=== PATIENT | female | born 1950 | race Caucasian/White ===

== ENCOUNTER 2023-08-26 08:31 | Outpatient (RCR) | payer MEDICARE, SELFPAY ==
--- NOTE | 2023-08-26 10:39 | OT.OPOE ---
OT Outpatient Ortho Eval OT Outpatient Ortho Eval* Start: 08/26/23 08:54 Freq: Status: Active Protocol: Document 08/26/23 09:07 NINA (Rec: 08/26/23 10:36 ASHLEYAlec [id number]) E-signed By Layla Anderson, OTR/L, CLT OT OP Ortho Eval Details Complexity Complexity Low Insurance Information Insurance Information [facility],Medicare B Outpatient History/Precautions Current Condition/Medical Diagnosis Referring Provider Dr. 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 Treatment Diagnosis Pain in R shoulder, M25.511 R shoulder stiffness, M25.611 Date of Onset Chronic Medical Conditions Arthritis Other Conditions Active Problems: Arthritis of right acromioclavicular joint (Acute ) M19.011 - Primary osteoarthritis, right shoulder (ICD-10) Osteoarthritis of right shoulder (Acute) M19.011 - Primary osteoarthritis, right shoulder (ICD-10) Arthritis of left acromioclavicular joint (Acute ) M19.012 - Primary osteoarthritis, left shoulder (ICD-10) Osteoarthritis of left shoulder (Acute) M19.012 - Primary osteoarthritis, left shoulder (ICD-10) Surgical History History of hysterectomy (~2006 ) Z90.710 - Acquired absence of both cervix and uterus (ICD-10 ) Hx of cholecystectomy (~2003) Z90.49 - Acquired absence of other specified parts of digestive tract (ICD-10) History of bilateral knee arthroplasty (12/15/17) Z96.653 - Presence of artificial knee joint, bilateral (ICD-10) Home Medications: atorvastatin 80 mg PO DAILY bisoprolol fumarate 5 mg PO DAILY ezetimibe 10 mg PO DAILY fluticasone propionate 50 mcg/ actuation 2 sprays intranasal DAILY hydrochlorothiazide 50 mg PO DAILY lisinopril 5 mg PO DAILY nitroglycerin mg sublingual paroxetine HCl 20 mg PO DAILY Medical/Functional History Medical History Reviewed Yes Prior Level of Function/Mobility Patient ambulates w/o a device . She is Indep with all Self cares and IADLs Social History Employment Status Retired Current Occupation Lives with spouse Ryland Covarrubias Subjective Subjective Subjective Patient is scheduled for a right upper extremity reverse shoulder arthroplasty (this is on her dominant UE) with Dr. Ar Moncada on 09/08/23. Pain Assessment Pain Pain Yes Pain Comments -08/25 at the R shoulder Goniometric Comments Goniometric Comments Goniometric Comments Right shoulder exam shows her range of motion is 45/45/back of the head with great difficulty. Hand Pinch/Server Assistant Strength Hand Pinch/Server Assistant Strength Hand Pinch/Server Assistant Strength Left Hand,Right Hand Left Hand Server Assistant Strength Position 1 in Elbow 55 Flexion (lbs) Server Assistant Strength Position 2 in Elbow 50 Extension (lbs) Right Hand Server Assistant Strength Position 1 in Elbow 45 Flexion (lbs) Server Assistant Strength Position 2 in Elbow 45 Extension (lbs) OT Objective Data Additional Information Objective Additional Information X-ray: Three views of the right shoulder were obtained today. These show end-stage glenohumeral joint osteoarthritis with bone-on- bone joint space narrowing and osteophytic spurring. No proximal migration humeral head, no retroversion of the glenoid. OT Problems Problems Problems Decreased Strength,Decreased Range of Motion,Pain,Lifting, Gripping,Pinching Problems Comments Closing doors, Opening the Car Door Other Problems Writing,Opening Containers, Dressing,Fasteners Patient Potential Excellent Assessment Assessment Assessment Patient is a pleasant 72yr old (retired), right-hand- dominant female scheduled for a right upper extremity reverse shoulder arthroplasty with Dr. Ar Moncada on . Patient presents with pain in both shoulders, right greater than left. She reports many years of global pain on the right, anterior pain on the left. Symptoms are worse with activity, minimally improved with rest. She has done physical therapy recently which has been helpful. She had a cortisone injection on the right, 2-3 years ago which was not helpful. She has never had surgery on either shoulder. She is a borderline diabetic, does not smoke cigarettes currently (former smoker >15 years ago) and is not on blood thinners. She has a supportive spouse (Ryland) who was present for OT EVAL today. EVAL ONLY with patient having outpatient PT after surgery ( beginning on 09.22.23) at the [place] [facility]. Occupational Therapy Treatment Plan - OP Potential Rehabilitation Potential Excellent Barriers Barriers to goal attainment Borderline Diabetic Former smoker, quit >15 years ago Set Goals Goals Set with Patient Yes Goals Goals 1. Patient will be able to properly basia/doff her shoulder sling Independently. 2. Patient will demonstrate how to accurately perform her post-op HEP with use of handout (Modified Indep). Target Date 1 session Treatment Plan Treatment Plan Evaluation,Therapeutic Exercise,Education Expected Frequency EVAL ONLY Expected Duration 2-4 Weeks Home Program Home Program Home Program Initiated Home Program Specifics EDUCATION: If you?ve had a total shoulder replacement, there are some positions your surgeon may recommend you avoid during your recovery to protect your shoulder as it heals. It is important to follow these precautions and any other instructions your health care team gives you to allow your shoulder to heal properly. 1. Make sure to wear your sling as directed by your healthcare provider. Generally , it?s a good idea to keep your sling on at all times, except during self-care or when performing your home exercises. ? Always wear your sling while walking, standing, sleeping, or when you?re outside or in crowds. Wearing your sling around others alerts those around you to be cautious around your operated arm. It also helps avoid someone accidentally bumping or striking your arm. ? If you?re sitting or lying down at home, you may be allowed to take off your sling . Just be careful to keep your elbow tucked in to your side whenever you?re out of your sling. 2. Do not lift or carry anything with your operated arm that weighs more than one pound. This is about the weight of a coffee cup. Eating , drinking, and using a remote control are okay. 3. Do not bear weight through your operated arm, such as when pushing up from a chair. ? If you use a walker, it?s best to use a cane or hemiwalker while your shoulder recovers. These devices can be used with your non- operative arm. 4. At first, you may find it more comfortable to sleep in a recliner. However, you may also sleep in a bed with a folded towel or sheet propped up behind your shoulder and upper arm for support. 5. Do not let your forearm or hand move out to the side. Gentle use of your elbow, wrist, and hand on your operated arm is okay as long as your arm is at your side and you keep your elbow in front of you. Your precautions may be different depending on your surgeon or rehab facility. Be sure to follow the instructions your health care team gives you. If you have any questions about which positions and movements to avoid, contact your healthcare provider. EXERCISES Supported Elbow (AROM) 3 sets x10 repetitions daily Wrist Circles (AROM) 3 sets x10 repetitions daily Seated Straight Fist (AROM) 3 sets x10 repetitions daily Finger Spreading 3 sets x10 repetitions daily Seated Shoulder Flexion (AAROM ) 3 sets x10 repetitions daily Seated Shoulder Flexion and Side to Side (AAROM) 3 sets x10 repetitions daily Certification Certification Statement I Certify That: Therapy Services Provided, Therapy Plan Established, Therapy Plan Reviewed Certification Information Clinic ID # [id number] Initial Certification Date 08/26/23 Recertification Due Date 08/30/23 Provider Signature Required Yes Provider Signature Shows Agreement With POC & Medical Necessity Physician NPI Number Write NPI# Here Physician Comment/Change Comment or Changes Physician Signature & Date Requested Please Sign/Date Here
== END 2023-12-24 23:59 | disposition home or self-care (01) ==
PROVIDERS: PCP Family Medicine; Visit Provider Orthopaedic Surgery
DX: M19.011 Primary osteoarthritis, right shoulder (principal); M25.511 Pain in right shoulder; M25.611 Stiffness of right shoulder, not elsewhere classified; Z51.89 Encounter for other specified aftercare
CPT/HCPCS: 97110; 97165; X5282

== ENCOUNTER 2023-09-08 06:06 | Day surgery (SDC) | payer MEDICARE, SELFPAY ==
[2023-09-08] VITALS (20 sets, daily range): BP systolic 100–164; BP diastolic 40–82; PULSE 46–67; RESP 14–16; TEMP 36.1–36.9; O2SAT 91–98; BMI 39.6
--- OUTSIDE RECORDS SUMMARY | 2023-09-08 06:10 | XMS_ITS | Encounter Summary ---
Author Organization [facility] Address [address] [place] [address] Care Team Providers Care Adjunct Professor Of Law Name Role Phone Harleen Hartmann M.D. Primary Care Provider [phone] Reason for Visit * Reason Onset Date Comments Results 09/03/202309-02 LMTCB Encounter Details Date Type Department Care Team (Latest Contact Info) Description 09/03/2023 Clinical Communication Department of Family Medicine, [facility], in [place], [place] [address] [place] [address] Harleen Hartmann M.D. [address] [place] [address] Results (09-02 LMTCB) Social History Tobacco Use Types Packs/Day Years Used Date Smoking Tobacco: Former Cigarettes Smokeless Tobacco: Never Alcohol Use Standard Drinks/Week Comments Not Currently 2 (1 standard drink = 0.6 oz pur e alcohol) Occasional [facility] Utilities Answer Date Recorded In the past [address], gas, oil, or water [employer] threatened to shut off services in your home? No 05/07/2023 PHQ-2 Answer Date Recorded PHQ-2 Score 2 05/07/2023 Exercise Vital Sign Answer Date Recorde d On average, how many days pe r week do you engage in moderate to strenuous exercise (like a brisk walk)? 3 days 05/07/2023 On average, how many minutes do you engage in exercise at this level? 30 min 05/07/2023 Hunger Vital Sign Answer Date Recorded Within the past 12 months, y ou worried that your food would run out before you got the money to buy more. Never true 05/07/19 24 Within the past 12 months, t he food you bought just didn't last and you didn't have money to get more. Never true 05/07/2023 PRAPARE - Transportation Answer Date Re corded In the past 12 months, has l ack of transportation kept you from medical appointments or from getting medications? No 04/17 In the past 12 months, has l ack of transportation kept you from meetings, work, or from getting things needed for daily living? No 05/07/2023 Nutrition Answer Date Recorded On average, how many serving s of fruits and vegetables do you eat per day (serving size is equal to 1 cup or approximately the size of a tennis ball)? 3-5 05/07/2023 Dental Answer Date Recorded Dental: Regular Dentist No 05/07/19 Employment Answer Date Recorded Employment status Retired 05/07/2023 Housing Stability Answer Date Recorded What is your living situation today? I have a [facility] place to live 05/07/2023 Sex and Gender Information Value Date Recorded Sex Assigned at Female 05/07/2023 8:34 AM CDT Gender Identity Female 05/07/2023 8:34 AM CDT Sexual Orientation Straight 05/07/2023 8: 34 AM CDT documented as of this encounter Miscellaneous Notes * Telephone Encounter - Rhonda Burrell LBriseydaP.N. - 09/03/2023 11:18 AM CDT Left message for patient to return call to clinic. Does the patient need to speak to nursing? yes Action needed: Dr. Hartmann asked us to Please inform the patient that her urine culture is positive for E coli. I would like to treat with Macrobid for 5 days. This most be done before her surgery. documented in this encounter Plan of Treatment Upcoming Encounters Date Type Department Care Team (Late st Contact Info) Description 11/30/2023 8:20 AM CDT Appointment Department of Laboratory Medicine in [address] [address] Harleen Hartmann M.D. 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 [address] [place] [address] PCP - General 03/29/20 documented as of this encounter
--- OUTSIDE RECORDS SUMMARY | 2023-09-08 06:10 | XMS_ITS | Encounter Summary ---
Author Organization [facility] Address [address] [place] [address] Care Team Providers Care Rn Paralegal Name Role Phone Harleen Hartmann M.D. Primary Care Provider [phone] Encounter Details Date Type Department Care Team (Latest Contact Info) Description 08/31/2023 8:48 AM CDT - 08/31/2023 11:59 PM CDT Hospital Encounter Department of Laboratory Medicine in [address] [phone] Harleen Hartmann M.D. [address] [place] [phone] Preoperative Exam; Diabetes Mellitus Type 2 (HCC) Discharge Disposition: Home or Self Care Social History Tobacco Use Types Packs/Day Years Used Date Smoking Tobacco: Former Cigarettes Smokeless Tobacco: Never Alcohol Use Standard Drinks/Week Comments Not Currently 2 (1 standard drink = 0.6 oz pur e alcohol) Occasional [facility] Utilities Answer Date Recorded In the past 12 months has [employer], gas, oil, or water [employer] threatened to shut off services in your [...] your living situation today? I have a [facility] place to live 05/07/2023 Sex and Gender Information Value Date Recorded Sex Assigned at Female 05/07/2023 8:34 AM CDT Gender Identity Female 05/07/2023 8:34 AM CDT Sexual Orientation Straight 05/07/2023 8: 34 AM CDT documented as of this encounter Medications at Time of Discharge Medication Sig Dispensed Refills Start Date End Date acetaminophen (TYLENOL) 500 mg tablet Take 500 mg by mouth every 6 (six) hours as needed for pain (takes 1 tablet as needed for pain). aspirin [address] tablet Take 81 mg by mouth daily. atorvastatin (LIPITOR) 80 mg tablet Take 1 tablet by mouth once daily 90 tablet 3 12/04/2022 benzonatate (TESSALON PERLES) 100 mg capsule Take 1 capsule (100 mg total) by mouth 3 (three) times a day as needed for cough. 20 capsule 03/13/2021 bisoprolol (ZEBETA) 5 mg tablet Take 1 tablet by mouth once daily 90 tablet 3 03/13/2023 ezetimibe (ZETIA) 10 mg tablet Take 1 tablet (10 mg total) by mouth daily. 90 tablet 3 05/08/2023 fluticasone propionate (FLONASE) 50 mcg/actuation nasal spray Administer 2 sprays into each nostril daily. 16 g 02/24/2022 hydroCHLOROthiazide (HYDRODIURIL) 50 mg tablet Take 1 tablet by mouth once daily 90 tablet 3 01/19/2023 metFORMIN (Glucophage) 500 mg tablet Take 1 tablet (500 mg total) by mouth 2 (two) times a day with meals. 60 tablet 11 09/01/2023 nitrofurantoin monohydrate (Macrobid) 100 mg capsule Take 1 capsule (100 mg total) by mouth 2 (two) times a day. 10 capsule 09/03/2023 nitroglycerin (NITROSTAT) 0.4 mg SL tablet Take one tablet every 5 minutes as needed for chest pain. If more than 3 doses is needed, go to ER. 25 tablet 5 03/27/2022 PARoxetine (PAXIL) 20 mg tablet Take 1 tablet by mouth once daily 90 tablet 3 01/19/2023 documented as of this encounter Plan of Treatment Upcoming Encounters Date Type Department Care Team (Late st Contact Info) Description 11/30/2023 8:20 AM CDT Appointment Department of Laboratory Medicine in [address] [phone] Harleen Hartmann M.D. [address] [place] [phone] documented as of this encounter Procedures Procedure Name Priority Date/Time Associated Diagnosis Comments CBC WITH DIFFERENTIAL, B Routine 08/31/2023 9:09 AM CDT Preoperative Exam HEMOGLOBIN A1C, B Routine 08/31/2023 9:0 9 AM CDT Diabetes Mellitus Type 2 (HCC) BASIC METABOLIC PANEL, S/P Routine 08/31/2023 9:09 AM CDT Preoperative Exam documented in this encounter Results * (ABNORMAL) Hemoglobin A1c (08/31/2023 9:09 AM CDT) Hemoglobin A1c, B 8.0(H) 4.2 - 5.6 % 08/31/2023 2:08 PM CDT OWAT Comment: Hemoglobin A1c values greater than or equal to 6.5 percent are diagnostic for diabetes mellitus. ??Diagnosis should be confirmed by repeat testing. ??In diabetic patients, HbA1c goals should be discussed with healthcare provider. Blood (Blood, Venous) 08/31/2023 9:09 AM CDT 08/31/2023 1:40 PM CDT Harleen Hartmann M.D. LAB BLOOD ADD-ON [facility] [address] [place] [address], [place] [address] [facility] [place] [address] [place] [address] * (ABNORMAL) CBC with Differential, Blood (08/31/2023 9:09 AM CDT) Hemoglobin 15.1(H) 11.6 - 15.0 g/dL 08/31/2023 9:41 AM CDT FB60 Hematocrit 45.3(H) 35.5 - 44.9 % 08/31/2023 9:41 AM CDT FB60 Erythrocytes 5.28(H) 3.92 - 5.13 x10(12)/L 08/31/2023 9:41 AM CDT FB60 MCV 85.8 78.2 - 97.9 fL 08/31/2023 9:41 AM CDT FB60 RBC Distrib Width 12.5 12.2 - 16.1 % 08/31/2023 9:41 AM CDT FB60 Platelet Count 262 157 - 371 x10(9)/L 08/31/2023 9:41 AM CDT FB60 Leukocytes 9.2 3.4 - 9.6 x10(9)/L 08/31/2023 9:41 AM CDT FB60 Neutrophils 5.94 1.56 - 6.45 x10(9)/L 08/31/2023 9:41 AM CDT FB60 Lymphocytes 2.09 0.95 - 3.07 x10(9)/L 08/31/2023 9:41 AM CDT FB60 Monocytes 0.70 0.26 - 0.81 x10(9)/L 08/31/2023 9:41 AM CDT FB60 Eosinophils 0.41 0.03 - 0.48 x10(9)/L 08/31/2023 9:41 AM CDT FB60 Basophils <0.04 0.01 - 0.08 x10(9)/L 08/31/2023 9:41 AM CDT FB60 Blood (Blood, Venous) 08/31/2023 9:09 AM CDT 08/31/2023 9:09 AM CDT Harleen Hartmann M.D. LAB BLOOD ADD-ON [facility] [address] [place] [address], [facility] FB[address] [facility] [place] [address] [place] [address] * (ABNORMAL) Basic Metabolic Panel (08/31/2023 9:09 AM CDT) Potassium, P 4.2 3.6 - 5.2 mmol/L 08/31/2023 2:12 PM CDT OWAT Sodium, P 141 135 - 145 mmol/L 08/31/2023 2:12 PM CDT OWAT Chloride, P 100 98 - 107 mmol/L 08/31/2023 2:12 PM CDT OWAT Bicarbonate, P 32(H) 22 - 29 mmol/L 08/31/2023 2:12 PM CDT OWAT Anion Gap, P 9 7 - 15 08/31/2023 2:12 PM CDT OWAT BUN (Blood Urea Nitrogen), P 14 6 - 21 mg/dL 08/31/2023 2:12 PM CDT OWAT Creatinine 0.71 0.59 - 1.04 mg/dL 08/31/2023 2:12 PM CDT OWAT Estimated GFR (eGFR) 90 >=60 mL/min/BSA 08/31/2023 2:12 PM CDT OWAT Comment: Estimated GFR calculated using the 2020 CKD_EPI creatinine equation. Calcium, Total, P 9.7 8.8 - 10.2 mg/dL 08/31/2023 2:12 PM CDT OWAT Glucose, P 182(H) 70 - 140 mg/dL 08/31/2023 2:12 PM CDT OWAT Blood (Blood, Venous) 08/31/2023 9:09 AM CDT 08/31/2023 1:40 PM CDT Harleen Hartmann M.D. LAB BLOOD ADD-ON [facility] [address] [place] [address], [facility] [address] 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 [address] [place] [phone] PCP - General 03/29/20 documented as of this encounter
--- OUTSIDE RECORDS SUMMARY | 2023-09-08 06:10 | XMS_ITS | Encounter Summary ---
Author Organization [facility] Address [address] [place] [address] Care Team Providers Care Slumber Room Attendant Name Role Phone Harleen Hartmann M.D. Primary Care Provider Reason for Referral * Outpatient (Routine) - Closed Specialty Diagnoses / Procedures Referred By Tracie batista Referred To Contact Diagnoses Preoperative Exam Procedures ECG 12 Lead Harleen Hartmann M.D. [address] [place] [address] [facility] Referral ID Status Reason Start Date Expiration Date Visits Re quested Visits Authorized [id number] Closed 08/31/2023 08/30/2024 1 1 Reason for Visit * Outpatient (Routine) - Closed Specialty Diagnoses / Procedures Referred By Tracie batista Referred To Contact Diagnoses Preoperative Exam Procedures ECG 12 Lead Harleen Hartmann M.D. [address] [place] [phone] [facility] Referral ID Status Reason Start Date Expiration Date Visits Re quested Visits Authorized [id number] Closed 08/31/2023 08/30/2024 1 1 Encounter Details Date Type Department Care Team (Latest Contact Info) Description 08/31/2023 8:47 AM CDT Hospital Encounter Department of Laboratory Medicine in [address] [phone] Harleen Hartmann M.D. [address] [place] [phone] Preoperative Exam Discharge Disposition: Home or Self Care Social History Tobacco Use Types Packs/Day Years Used Date Smoking Tobacco: Former Cigarettes Smokeless Tobacco: Never Alcohol Use Standard Drinks/Week Comments Not Currently 2 (1 standard drink = 0.6 oz pur e alcohol) Occasional [facility] Utilities Answer Date Recorded In the past 12 months has th e electric, gas, oil, or water company threatened to shut off services in your [...] money to buy more. Never true 05/07/19 Within the past 12 months, t he [...] your living situation today? I have a [facility] place to live 05/07/2023 Sex and [...] CDT Appointment Department of Laboratory Medicine in [address] [phone] Harleen Hartmann M.D. [address] [place] [address] documented as of this encounter Procedures Procedure Name Priority Date/Time Associated Diagnosis Comments ECG Routine 08/31/2023 8:55 AM CDT Preoperative Exam documented in this encounter Results * ECG 12 Lead (08/31/2023 8:55 AM CDT) Ventricular Rate ECG/Min 53 BPM MUSE KS Interval 204 ms MUSE QRSD Interval 66 ms MUSE QT Interval 454 ms MUSE QTC Interval 426 ms MUSE P [place] 41 degrees MUSE R [place] 41 degrees MUSE T Wave [place] 52 degrees MUSE 08/31/2023 8:55 AM CDT 08/31/2023 9:59 AM CDT Impressions MUSE - 08/31/2023 9:03 AM CDT Sinus bradycardia with 1st degree A-V block Premature atrial complexes with aberrant conduction Nonspecific ST and T wave abnormality When compared with ECG of 07-May-2023 09:27, Premature atrial complexes with aberrant conduction are now present KS interval has increased Revised Report Narrative Procedure Note Misha Silva Jr., M.D. - 08/31/2023 IMPRESSION: Sinus bradycardia with 1st degree A-V block Premature atrial complexes with aberrant conduction Nonspecific ST and T wave abnormality When compared with ECG of 07-May-2023 09:27, Premature atrial complexes with aberrant conduction are now present KS interval has increased Revised Report Harleen Hartmann M.D. 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 [address] [facility] [place] [phone] (work) PCP - General 03/29/20 documented as of this encounter
--- OUTSIDE RECORDS SUMMARY | 2023-09-08 06:10 | XMS_ITS | Referral Summary ---
Author Organization [facility] Address [address] [place] [address] Care Team Providers Care Olericulture Professor Name Role Phone Harleen Hartmann M.D. Primary Care Provider [phone] Source Comments Patient records contain information from all sites at [facility]. For routine questions regarding patient records, call [phone] during business hours, M-F 8:00 AM - 5:00 PM Central Time. Record requests for emergency care only can be directed to [phone] at any time.[facility] Encounters Date Type Department Care Team Description 09/03/2023 Clinical Communication Department of Family Medicine, [facility], in [address] [address] Harleen Hartmann M.D. Results [facility]09[facility]02 [facility] 08/31/2023 8:48 AM CDT - 08/31/2023 11:59 PM CDT Hospital Encounter Department of Laboratory Medicine in [address] [address] Harleen Hartmann M.D. Preoperative Exam; Diabetes Mellitus Type 2 (HCC) Discharge Disposition: Home or Self Care 08/31/2023 8:48 AM CDT - 08/31/2023 11:59 PM CDT Hospital Encounter Department of Laboratory Medicine in [address] [address] Harleen Hartmann M.D. Preoperative Exam Discharge Disposition: Home or Self Care 08/31/2023 8:47 AM CDT Hospital Encounter Department of Laboratory Medicine in [place], [place] [address] [place] [address] Harleen Hartmann M.D. Preoperative Exam Discharge Disposition: Home or Self Care 08/31/2023 8:30 AM CDT Office Visit Department of Family Medicine, [facility], in [place], [place] [address] [place] [address] Harleen Hartmann M.D. Preoperative Exam (Primary Dx); Diabetes Mellitus Type 2 (HCC) 07/31/2023 10:00 AM CDT Comprehensive Visit Department of Family Medicine, [facility], in [place], [place] [address] [place] [address] Kenia Chavarria APRN, C.NBriseydaPBriseyda Keratosis Seborrheic Inflamed (Primary Dx); Screening Examination Skin Cancer; Dermatoheliosis from Last 3 Months Allergies No known active allergies Medications Medication Sig Dispensed Refills Start Date End Date Status aspirin [address] tablet Take 81 mg by mouth daily. Active acetaminophen (TYLENOL) 500 mg tablet Take 500 mg by mouth every 6 (six) hours as needed for pain (takes 1 tablet as needed for pain). Active benzonatate (TESSALON PERLES) 100 mg capsule Take 1 capsule (100 mg total) by mouth 3 (three) times a day as needed for cough. 20 capsule 03/13/2021 Active fluticasone propionate (FLONASE) 50 mcg/actuation nasal spray Administer 2 sprays into each nostril daily. 16 g 02/24/2022 Active nitroglycerin (NITROSTAT) 0.4 mg SL tablet Take one tablet every 5 minutes as needed for chest pain. If more than 3 doses is needed, go to ER. 25 tablet 5 03/27/2022 Active atorvastatin (LIPITOR) 80 mg tablet Take 1 tablet by mouth once daily 90 tablet 3 12/04/2022 Active PARoxetine (PAXIL) 20 mg tablet Take 1 tablet by mouth once daily 90 tablet 3 01/19/2023 Active hydroCHLOROthiazide (HYDRODIURIL) 50 mg tablet Take 1 tablet by mouth once daily 90 tablet 3 01/19/2023 Active bisoprolol (ZEBETA) 5 mg tablet Take 1 tablet by mouth once daily 90 tablet 3 03/13/2023 Active ezetimibe (ZETIA) 10 mg tablet Take 1 tablet (10 mg total) by mouth daily. 90 tablet 3 05/08/2023 Active metFORMIN (Glucophage) 500 mg tablet Take 1 tablet (500 mg total) by mouth 2 (two) times a day with meals. 60 tablet 11 09/01/2023 Active nitrofurantoin monohydrate (Macrobid) 100 mg capsule Take 1 capsule (100 mg total) by mouth 2 (two) times a day. 10 capsule 09/03/2023 Active Active Problems Patient Care Coordination No te Formatting of this note migh t be different from the original. Spouse: Ryland Children: 5, 10 grandkids Work: [employer] Problem Noted Date Diagnosed Date Hypertension Essential Primary 02/12/2021 Atherosclerotic Heart Diseas e Of [place] Coronary Artery Without Angina Pectoris 11/18/2017 Overview (11/18/2017): Coronary artery angiogram 11/16/17 Body Mass Index 40.0 To 44.9 Adult 02/14/2016 Overview (07/08/2016): Body mass index (BMI) 40.0-44.9, adult Rule activated problem due to BMI 40-44 posted on 02/13 at 10:03 BILLING SPECIALIST. Cancer Uterus Endometrial Personal History Overview (05/24/2017): Treated at the [facility] Depression Anxiety Hypercholesterolemia Diabetes Mellitus Type 2 Hyperglycemia Resolved Problems Problem Noted Date Diagnosed Date Resolved Date COVID-19 Infection 03/13/2021 2 Anticoagulant Therapy 01/19/20182017 Monitoring For Therapeutic Drug Therapy 01/19/2018 01/20/2018 Anticoagulant Therapy [Z79.01] 2017 01/14/2018 Monitoring For Therapeutic D rug Therapy [Z51.81] 2017 01/14/2018 Abnormal Stress Test 11/12/2017 018 Overview (11/12/2017): Added automatically from request for surgery [id number] Hypertensive Heart Disease [facility] Heart Failure 11/12/2017 02/12/2021 Hypertension Essential Benign 06/08/2009 11/12/2017 Overview (07/08/2016): Benign Essential Hypertension Malignant Neoplasm Of Endometrium 06/04/2009 01/29/2022 Overview (07/08/2016): Cancer of endometrium KYLAH?BSO 11/24/2007 Hypertension Essential Primary 11/12/2017 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 I have a [facility] place to live 05/07/2023 Sex and Gender Information Value Date Recorded Sex Assigned at Female 05/07/2023 8:34 AM CDT Gender Identity Female 05/07/2023 8:34 AM CDT Sexual Orientation Straight 05/07/2023 8: 34 AM CDT Last Filed Vital Signs Vital Sign Reading Time Taken Comments Blood Pressure 133/72 08/31/2023 8:21 AM CDT Pulse 50 08/31/2023 8:21 AM CDT Temperature 35.8 ??C (96.5 ??F) 08/31/2023 8:21 AM CD T Respiratory Rate 16 08/31/2023 8:21 AM CDT Oxygen Saturation 95% 05/20/2023 8:31 AM CDT ROOM AIR Inhaled Oxygen Concentration - - Weight 95.2 kg (209 lb 15.8 oz) 08/31/2023 8:21 AM CDT Height 155 cm (5' 1.02) 08/31/2023 8:21 AM CDT Body Mass Index 39.65 08/31/2023 8:21 AM CDT Plan of Treatment Upcoming Encounters Date Type Department Care Team (Late st Contact Info) Description 11/30/2023 8:20 AM CDT Appointment Department of Laboratory Medicine in [place], [place] [address] [place] [address] Harleen Hartmann M.D. [address] [place] [address] Medical Devices Implanted Type Area Window Installation Subcontractor Device Identifier Shelf Expiration Date Model / Serial / Lot Knee Implant Knee Implant Bilateral : Knee Procedures Procedure Name Priority Date/Time Associated Diagnosis Comments BACTERIAL CULTURE, AEROBIC + SUSC, URINE Routine 09/01/2023 9:07 AM CDT Preoperative Exam HEMOGLOBIN A1C, B Routine 08/31/2023 9:0 9 AM CDT Diabetes Mellitus Type 2 (HCC) CBC WITH DIFFERENTIAL, B Routine 08/31/2023 9:09 AM CDT Preoperative Exam BASIC METABOLIC PANEL, S/P Routine 08/31/2023 9:09 AM CDT Preoperative Exam UT URINALYSIS AUTO W MICRO Routine 08/31/2023 9:07 AM CDT URINALYSIS WITH MICROSCOPIC IF INDICATED, U Routine 08/31/2023 9:07 AM CDT Preoperative Exam ECG Routine 08/31/2023 8:55 AM CDT Preoperative Exam LIPID PANEL, S Routine 05/07/2023 9:22 AM CDT Hyperlipidemia BI BREAST SCREENING BILATERAL WITH TOMOSYNTHESIS RAD - Routine (most inpatients and all outpatients) 02/24/2023 11:16 AM BILLING SPECIALIST Screening Mammogram Breast Cancer COLOGUARD Routine 01/22/2023 12:19 PM BILLING SPECIALIST Screening Cancer Colon ALBUMIN, RANDOM, U Routine 12/17/2022 8: 40 AM CDT Diabetes Mellitus Type 2 Hyperglycemia (HCC) from Last 3 Months or Most Recently Relevant to Health Maintenance Results * (ABNORMAL) Bacterial Culture, Aerobic + Susceptibility, Urine (09/01/2023 9:07 AM CDT) Urine Culture With urogenital microbiota, susceptibilities not performed per laboratory criteria. (A) 09/03/2023 12:52 PM CDT MKTO Urine Culture ESCHERICHIA COLI 10,000-100,000 cfu/mL (A) 09/03/2023 12:52 PM CDT MKTO Urine (Urine, Midstream) 09/01/2023 9:07 AM CDT 09/01/2023 7:13 PM CDT Comment:Specimen Source Site : Urine Narrative Organism Antibiotic Method Susceptibility Escherichia coli Ampicillin SUSCEPTIBILITY, IRAM (MCG/ML) 4 mcg/mL: Susceptible Escherichia coli Ampicillin + Sulbactam SUSCEPTI BILITY, IRAM (MCG/ML) <=2 mcg/mL: Susceptible Escherichia coli Piperacillin + Tazobactam SUSCE PTIBILITY, IRAM (MCG/ML) <=4 mcg/mL: Susceptible Escherichia coli Cefazolin SUSCEPTIBILITY, IRAM (MCG/ML) <=4 mcg/mL: Susceptible Comment: The interpretation applies to uncomplicated urinary tract infections only. It also applies to these oral cephalosporins: cefuroxime, cephalexin, and cefprozil. Escherichia coli Ceftazidime SUSCEPTIBILITY, IRAM (MCG/ML) <=1 mcg/mL: Susceptible Escherichia coli Ceftriaxone SUSCEPTIBILITY, IRAM (MCG/ML) <=1 mcg/mL: Susceptible Escherichia coli Cefepime SUSCEPTIBILITY, IRAM (MCG/ML) <=1 mcg/mL: Susceptible Escherichia coli Aztreonam SUSCEPTIBILITY, IRAM (MCG/ML) <=1 mcg/mL: Susceptible Escherichia coli Ertapenem SUSCEPTIBILITY, IRAM (MCG/ML) <=0.5 mcg/mL: Susceptible Escherichia coli Meropenem SUSCEPTIBILITY, IRAM (MCG/ML) <=0.25 mcg/mL: Susceptible Escherichia coli Gentamicin SUSCEPTIBILITY, IRAM (MCG/ML) <=1 mcg/mL: Susceptible Escherichia coli Tobramycin SUSCEPTIBILITY, IRAM (MCG/ML) <=1 mcg/mL: Susceptible Escherichia coli Levofloxacin SUSCEPTIBILITY, IRAM (MCG/ML) <=0.12 mcg/mL: Susceptible Escherichia coli Nitrofurantoin SUSCEPTIBILITY, IRAM (MCG/ML) <=16 mcg/mL: Susceptible Escherichia coli Trimethoprim + Sulfamethoxazole SUSCEPTIBILITY, IRAM (MCG/ML) <=20 mcg/mL: Susceptible Harleen Hartmann M.D. LAB MICROBIOLOGY - G ENERAL ORDERABLES [facility] [address] [place] [address], [facility] in [place] [address] [place] [address] * (ABNORMAL) CBC with Differential, Blood (08/31/2023 9:09 AM CDT) [facility] Signature Hemoglobin 15.1(H) 11.6 - 15.0 g/dL 08/31/2023 [...] CDT Harleen Hartmann M.D. LAB BLOOD ADD-ON [facility] [address] [place] [address], [place] FB60 [facility] in [place] [address] [place] [address] * (ABNORMAL) Hemoglobin A1c (08/31/2023 9:09 AM [...] CDT Harleen Hartmann M.D. LAB BLOOD ADD-ON [facility] [address] [place] [address], [facility] OWAT [facility] in [place] [address] [place] [address] * (ABNORMAL) Basic Metabolic Panel (08/31/2023 9:09 [...] CDT Harleen Hartmann M.D. LAB BLOOD ADD-ON [facility] [address] [place] [address], [place] OWAT [facility] in [place] [address] [place] [address] * (ABNORMAL) Urinalysis with Microscopic if Indicated (08/31/2023 9:07 AM CDT) Source Urine, Urine, Midstream 08/31/2023 9:42 AM CDT FB60 Clarity Clear Clear 08/31/2023 9:46 AM CDT FB60 Color Yellow 08/31/2023 9:46 AM CDT FB60 Comment: ----REFERENCE VALUE---- Colorless Yellow Heather Blood Negative Negative 08/31/2023 9:46 AM CDT FB60 Nitrite Negative Negative 08/31/2023 9:46 AM CDT FB60 Leukocyte Esterase Trace(A) Negative 08/31/2023 9:46 AM CDT FB60 Protein Negative mg/dL 08/31/2023 9:46 AM CDT FB60 Comment: ----REFERENCE VALUE---- Negative Trace Glucose Negative Negative mg/dL 08/31/2023 9:46 AM CDT FB60 Ketones, QI(U) Trace(A) Negative mg/dL 08/31/2023 9:46 AM CDT FB60 Bilirubin Small(A) Negative 08/31/2023 9:46 AM CDT FB60 pH 6.5 5.0 - 8.0 08/31/2023 9:46 AM CDT FB60 Specific [place] 1.020 1.001 - 1.035 08/31/2023 9:46 AM CDT FB60 Urobilinogen 0.2 0.2 - 1.0 mg/dL 08/31/2023 9:46 AM CDT FB60 Urine (Urine, Midstream) 08/31/2023 9:07 AM CDT 08/31/2023 9:42 AM CDT Harleen Hartmann M.D. LAB URINE ORDERABLES Performing Organization Address City/[facility] Co de Phone Number [facility] [address] [place] [address], [facility] FB60 [facility] in [place] [address] [place] [address] * Microscopic Manual (08/31/2023 9:07 AM CDT) White Blood Cells 4-10 /hpf 08/31/2023 9:57 AM CDT FB60 Comment: ----REFERENCE VALUE---- Males: 0-3 Females: 0-10 Unknown: 0-10 Red Blood Cells Occ-2 0 - 2 /hpf 9:57 AM CDT FB60 Squamous Cells 11-20 /hpf 08/31/2023 9:57 AM CDT FB60 Urine 08/31/2023 9:07 AM CDT 08/31/2023 9:42 AM CDT Harleen Hartmann M.D. LAB URINE ORDERABLES Performing Organization Address City/[facility] Co de Phone Number [facility] [address] [place] [address], [facility] FB60 [facility] in [address] [address] * ECG 12 Lead (08/31/2023 8:55 AM CDT) Ventricular Rate ECG/Min 53 BPM MUSE UT Interval 204 ms MUSE QRSD Interval 66 ms MUSE QT Interval 454 ms MUSE QTC Interval 426 ms MUSE P Malott 41 degrees MUSE R Malott 41 degrees MUSE T Wave [place]ott 52 degrees MUSE 08/31/2023 8:55 AM CDT 08/31/2023 9:59 AM CDT Impressions MUSE - 08/31/2023 9:03 AM CDT Sinus bradycardia with 1st degree A-V block Premature atrial complexes with aberrant conduction Nonspecific ST and T wave abnormality When compared with ECG of 07-May-2023 09:27, Premature atrial complexes with aberrant conduction are now present UT interval has increased Revised Report Narrative Procedure Note Misha Silva Jr., M.D. - 08/31/2023 IMPRESSION: Sinus bradycardia with 1st degree A-V block Premature atrial complexes with aberrant conduction Nonspecific ST and T wave abnormality When compared with ECG of 07-May-2023 09:27, Premature atrial complexes with aberrant conduction are now present UT interval has increased Revised Report Harleen Hartmann M.D. ECG ORDERABLES MUSE NA * (ABNORMAL) Lipid Panel (05/07/2023 9:22 AM CDT) Triglycerides 178(H) mg/dL 05/07/2023 1:39 PM CDT OWAT Comment: ----REFERENCE VALUE---- Normal: <150 mg/dL Borderline High: 150-199 mg/dL High: 200-499 mg/dL Very High: > or =500 mg/dL Cholesterol, Total 128 mg/dL 2023 1:39 PM CDT OWAT Comment: ----REFERENCE VALUE---- Desirable: < 200 mg/dL Borderline High: 200 - 239 mg/dL High: > or = 240 mg/dL Cholesterol, LDL, Calculated 57 mg/dL 05/07/2023 1:39 PM CDT OWAT Comment: ----REFERENCE VALUE---- Desirable: <100 mg/dL Above Desirable: 100-129 mg/dL Borderline High: 130-159 mg/dL High: 160-189 mg/dL Very High: >=190 mg/dL ----ADDITIONAL INFORMATION---- LDL cholesterol calculated using the Villarreal/NIH equation. Cholesterol, HDL 41(L) >=50 mg/dL 05/07/19 1:39 PM CDT OWAT Cholesterol, Non-HDL, Calculated 87 mg/dL 05/07/2023 1:39 PM CDT OWAT Comment: ----REFERENCE VALUE---- Desirable: <130 mg/dL Above Desirable: 130-159 mg/dL Borderline High: 160-189 mg/dL High: 190-219 mg/dL Very High: > or =220 mg/dL Fasting (8 HR or more) yes 05/07/2023 12:57 PM CDT OWAT Blood (Blood, Venous) 05/07/2023 9:22 AM CDT 05/07/2023 12:57 PM CDT Harleen Hartmann M.D. LAB BLOOD ADD-ON [facility] [address] [place] [address], [facility] OWAT [facility] in [place] [address] [place] [address] * BI Breast Screening Bilateral with Tomosynthesis (02/24/2023 11:16 AM BILLING SPECIALIST) Anatomical Region Laterality Modality Breast, Breast Imaging RST L OS, Breast Imaging ARZ LOS, Breast Imaging FLA LOS Bilateral Mammography Impressions 02/24/2023 1:49 PM BILLING SPECIALIST Negative. RECOMMENDATION: ??Annual Screening Mammogram ASSESSMENT: ??BI-RADS: 1: Negative. Narrative 02/24/2023 1:49 PM BILLING SPECIALIST EXAM: ??BI BREAST SCREENING BILATERAL WITH TOMOSYNTHESIS Current study was evaluated with a Computer Aided Detection (CAD) system. INDICATION: ??Screening mammogram. COMPARISON: ??Prior exam(s) were available and reviewed for comparison. DENSITY: ??c. The breast(s) are heterogeneously dense, which may obscure small masses. FINDINGS: ??No mammographic findings of malignancy. Procedure Note Ryland Eric M.D. - 02/24/2023 EXAM: BI BREAST SCREENING BILATERAL WITH TOMOSYNTHESIS Current study was evaluated with a Computer Aided Detection (CAD) system. INDICATION: Screening mammogram. COMPARISON: Prior exam(s) were available and reviewed for comparison. DENSITY: c. The breast(s) are heterogeneously dense, which may obscuresmall masses. FINDINGS: No mammographic findings of malignancy. IMPRESSION: Negative. RECOMMENDATION: Annual Screening Mammogram ASSESSMENT: BI-RADS: 1: Negative. Harleen Hartmann M.D. [facility] [place]EDURES * Cologuard - Sent Out Lab (01/22/2023 12:19 PM BILLING SPECIALIST) Result Negative Negative 01/30/2023 9:48 AM BILLING SPECIALIST EXLI Comment: NEGATIVE TEST RESULT. A negative Cologuard result indicates a low likelihood that a colorectal cancer (CRC) or advanced adenoma (adenomatous polyps with more advanced pre-malignant features) ??is present. The chance that a person with a negative Cologuard test has a colorectal cancer is less than 1 in 1500 (negative predictive value >99.9%) or has an ??advanced adenoma is less than ??5.3% (negative predictive value 94.7%). These data are based on a prospective cross-sectional study of 10,000 individuals at average risk for colorectal cancer who were screened with both Cologuard and colonoscopy. (Aida Huizar al, N Engl J Med 2014;370(14):2604-9655) The normal value (reference range) for this assay is negative. COLOGUARD RE-SCREENING RECOMMENDATION: Periodic colorectal cancer screening is an important part of preventive healthcare for asymptomatic individuals at average risk for colorectal cancer. ??Following a negative Cologuard result, the [place] [employer] and U.S. Multi-Society Task Force screening guidelines recommend a Cologuard re-screening interval of 3 years. References: [place] [employer] Guideline for Colorectal Cancer Screening: https://www.cancer.org/cancer/ghvpe-gdpsvs-wqieup/detection- diagnosis-staging/acs-recommendations.html.; Charles DK, Elizabeth CR, Mayda ValenciaK, Colorectal Cancer Screening: Recommendations for Physicians and Patients from the U.S. Multi-Society Task Force on Colorectal Cancer Screening , Am J Gastroenterology 2017; 112:3799-2410. TEST DESCRIPTION: Composite algorithmic analysis of stool DNA-biomarkers with hemoglobin immunoassay. ?? Quantitative values of individual biomarkers are not reportable and are not associated with individual biomarker result reference ranges. Cologuard is intended for colorectal cancer screening of adults of either sex, 45 years or older, who are at average-risk for colorectal cancer (CRC). Cologuard has been approved for use by the U.S. FDA. The performance of Cologuard was established in a cross sectional study of average-risk adults aged 50-84. Cologuard performance in patients ages 45 to 49 years was estimated by sub-group analysis of near-age groups. Colonoscopies performed for a positive result may find as the most clinically significant lesion: colorectal cancer [4.0%], advanced adenoma (including sessile serrated polyps greater than or equal to 1cm diameter) [20%] or non- advanced adenoma [31%]; or no colorectal neoplasia [45%]. These estimates are derived from a prospective cross-sectional screening study of 10,000 individuals at average risk for colorectal cancer who were screened with both Cologuard and colonoscopy. (Aida Huizar al, N Engl J Med 2014;370(14):1446-9229.) Cologuard may produce a false negative or false positive result (no colorectal cancer or precancerous polyp present at colonoscopy follow up). A negative Cologuard test result does not guarantee the absence of CRC or advanced adenoma (pre-cancer). The current Cologuard screening interval is every 3 years. ([place] [employer] Society and U.S. Multi-Society Task Force). Cologuard performance data in a 10,000 patient pivotal study using colonoscopy as the reference method can be accessed at the following location: www.[employer] Care[employer]/results. Additional description of the Cologuard test process, warnings and precautions can be found at www.[employer].com. Stool (Stool) 01/22/2023 12: 19 PM BILLING SPECIALIST 01/24/2023 2:47 PM BILLING SPECIALIST Harleen Hartmann M.D. LAB BODY FLUIDS AND STOOLS ORDERABLES [employer] [address] [place] [address] EXLI [email or web address] [address] [place] [address], [address] [place] [address] * Albumin, Random, Urine (12/17/2022 8:40 AM CDT) Microalbumin <12.0 mg/L 12/17/2022 11:50 AM CDT OWAT Comment:If clinically indica la, contact the lab for additional testing. Creatinine 125 mg/dL 12/17/2022 11:50 AM CDT OWAT Albumin/Creatinine Ratio <10 <25 mg/g 12/17/2022 11:50 AM CDT OWAT Comment: This ratio may not correspond with the reference range because one or both of the values used to calculate the ratio was above or below the quantification limits. Urine (Urine, Midstream) 12/17/2022 8:40 AM CDT 12/17/2022 11:00 AM CDT Harleen Hartmann M.D. LAB URINE ORDERABLES [facility] [address] [place] [address], [facility] OWAT [facility] [place] [address] [place] [address] from Last 3 Months or Most Recently Relevant to Health Maintenance Care Teams Olericulture Professor Relationship Specialty Start Date End Date Harleen Hartmann M.D. [address] [place] [address] [place] [id number] PCP - General 03/29/20
--- OUTSIDE RECORDS SUMMARY | 2023-09-08 06:10 | XMS_ITS | Encounter Summary ---
Author Organization [facility] Address [address] [place] [address] Care Team Providers Care Centrifuge Separator Operator Name Role Phone Caren Vila M.D. Primary Care Provider Reason for Referral * Outpatient (Routine) - Closed Specialty Diagnoses / Procedures Referred By Tracie batista Referred To Contact Diagnoses Preoperative Exam Procedures ECG 12 Lead Caren Vila M.D. [address] [place] [address] [facility] Region Referral ID Status Reason Start Date Expiration Date Visits Re quested Visits Authorized [id number] Closed 08/31/2023 08/30/2024 1 1 Reason for Visit * Reason Comments [facility] * Appointment Request (Routine) - Closed Specialty Diagnoses / Procedures Referred By Tracie batista Referred To Contact Family Medicine Referral ID Status Reason Start Date Expiration Date Visits Re quested Visits Authorized [id number] Closed 07/22/2023 07/21/2024 1 1 Encounter Details Date Type Department Care Team (Late st Contact Info) Description 08/31/2023 8:30 AM CDT Office Visit Department of Family Medicine, [facility], in [place], [place] [address] [place] [address] Caren Vila M.D. [address] [place] [address] Preoperative Exam (Primary Dx); Diabetes Mellitus Type 2 (HCC) Social History Tobacco Use Types Packs/Day Years Used Date Smoking Tobacco: Former Cigarettes Smokeless Tobacco: Never Alcohol Use Standard Drinks/Week Comments Not Currently 2 (1 standard drink = 0.6 oz pur e alcohol) Occasional [facility] Utilities Answer Date Recorded In the past [...] your living situation today? I have a [facility] place to live 05/07/2023 Sex and Gender Information Value Date Recorded Sex Assigned at Female 05/07/2023 8:34 AM CDT Gender Identity Female 05/07/2023 8:34 AM CDT Sexual Orientation Straight 05/07/2023 8: 34 AM CDT documented as of this encounter Last Filed Vital Signs Vital Sign Reading Time Taken Comments Blood Pressure 133/72 08/31/2023 8:21 AM CDT Pulse 50 08/31/2023 8:21 AM CDT Temperature 35.8 ??C (96.5 ??F) 08/31/2023 8:21 AM CD T Respiratory Rate 16 08/31/2023 8:21 AM CDT Oxygen Saturation - - Inhaled Oxygen Concentration - - Weight 95.2 kg (209 lb 15.8 oz) 08/31/2023 8:21 AM CDT Height 155 cm (5' 1.02) 08/31/2023 8:21 AM CDT Body Mass Index 39.65 08/31/2023 8:21 AM CDT documented in this encounter H&P Notes * Caren Vila M.D. - 08/31/2023 8:30 AM CDT Chief Complaints: 1. Preanesthetic Medical Consultation Date of Surgery: 09/08/2023 Requesting Physician: -[facility] History of Present Illness Trina Jaime is a 72 y.o. female with past medical history significant for depression, anxiety, hyperlipidemia, hypertension, CAD, diabetes mellitus who comes in for a preanesthetic medical consultation for right shoulder replacement. Patient with history of CAD. He has been doing well and continues to be asymptomatic. She presents at her baseline health and declines any symptoms of chest pain, shortness of breath orexercise intolerance. She is able to conduct her regular activities including going up and down thestairs without any issues. She also declines any past issues with abnormal bleeding, clotting or problems with anesthesia. 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 Zelalem Altman, recommended repeat in 10 years DILATION AND CURETTAGE OF UTERUS for a miscarriage ENDOSCOPIC RETROGRADE CHOLANGIOPANCREATOGRAPHY WITH BILIARY STENT REMOVAL N/A 11/13/2003 ENDOSCOPIC RETROGRADE CHOLANGIOPANCREATOGRAPHY WITH PANCREATIC STENT PLACEMENT N/A 10/07/2003 HYSTERECTOMY TOTAL ABDOMINAL HYSTERECTOMY WITH BILATERAL SALPINGO-OOPHORECTOMY N/A 11/24/2007 VAGINAL DELIVERY Family History Family History Problem Relation Name Age of Onset Coronary artery disease Mother Radha Hyperlipidemia Mother Radha Heart attack Mother Radha Hepatocellular carcinoma Father Parmjit Liver cancer Hyperlipidemia Father Parmjit Coronary artery disease Brother Ryland Diabetes Brother Kermit Coronary artery disease Brother Prashant Coronary artery disease Brother Carmelo CABG x 3 - Coronary artery bypass grafts x 3 Brother Carmelo Hyperlipidemia Brother Carmelo No Known Problems Daughter Kylah No Known Problems Daughter Felicity No Known Problems Son Edin No Known Problems Son Don No Known Problems Son Gulshan Social History Social History Socioeconomic History Marital status: Spouse name: Not on file Number of children: Not on file Years of education: Not on file Highest education level: Not on file Occupational History Not on file Tobacco Use Smoking status: Former Types: Cigarettes Smokeless tobacco: Never Vaping Use Vaping status: never used Substance and Sexual Activity Alcohol use: Not Currently Alcohol/week: 2.0 standard drinks of alcohol Types: 2 Standard drinks or equivalent per week Comment: Occasional Drug use: Never Sexual activity: Yes Partners: Male Other Topics Concern Not on file Social History Narrative 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 Caffeine: 3-4 cans Diet Coke daily Social Determinants of Health Food Insecurity: No Food Insecurity (05/07/2023) Hunger Vital Sign Worried About Running Out of Food in the Last Year: Never true Ran Out of Food in the Last Year: Never true Transportation Needs: No Transportation Needs (05/07/2023) PRAPARE - Transportation Lack of Transportation (Medical): No Lack of Transportation (Non-Medical): No Physical Activity: Insufficiently Active (05/07/2023) Exercise Vital Sign Days of Exercise per Week: 3 days Minutes of Exercise per Session: 30 min Intimate Partner Violence: Not on file Housing Stability: Low Risk (05/07/2023) Housing Stability Housing: Living Situation: I have a steady place to live Current Medications Current Outpatient Medications Medication Sig Dispense Refill acetaminophen (TYLENOL) 500 mg tablet Take 500 mg by mouth every 6 (six) hours as needed for pain (takes 1 tablet as needed for pain). aspirin [address] tablet Take 81 mg by mouth daily. atorvastatin (LIPITOR) 80 mg tablet Take 1 tablet by mouth once daily 90 tablet 3 benzonatate (TESSALON PERLES) 100 mg capsule Take 1 capsule (100 mg total) by mouth 3 (three) timesa day as needed for cough. 20 capsule 0 bisoprolol (ZEBETA) 5 mg tablet Take 1 tablet by mouth once daily 90 tablet 3 ezetimibe (ZETIA) 10 mg tablet Take 1 tablet (10 mg total) by mouth daily. 90 tablet 3 fluticasone propionate (FLONASE) 50 mcg/actuation nasal spray Administer 2 sprays into each nostrildaily. 16 g 0 hydroCHLOROthiazide (HYDRODIURIL) 50 mg tablet Take 1 tablet by mouth once daily 90 tablet 3 nitroglycerin (NITROSTAT) 0.4 mg SL tablet Take one tablet every 5 minutes as needed for chest pain. If more than 3 doses is needed, go to ER. 25 tablet 5 PARoxetine (PAXIL) 20 mg tablet Take 1 tablet by mouth once daily 90 tablet 3 No current facility-administered medications for this visit. Allergies No Known Allergies Review of Systems: All systems reviewed and otherwise negative unless noted above. Specifically, no fevers, chills or sweats. No chest pain and no increasing shortness of breath on exertion. Physical Examination: Vitals: BP 133/72 (BP Location: Left arm, Patient Position: Sitting, Cuff Size: Regular) Pulse (!) 50 Temp (!) 35.8 ??C (Temporal) Resp 16 Ht 155 cm Wt 95.2 kg BMI 39.65 kg/m?? GENERAL: In no apparent distress, comfortable and cooperative. EYES: XOCHILT, EOMI, no conjunctival injection. ENT: Normal tympanic membrane, normal light reflex, bony landmarks visible. External nares normal and patent with no erythema or discharge. Oropharynx appears normal with no lesions. Uvula is midlineand there is no significant tonsillar swelling. NECK: Supple with no lymphadenopathy. There is no apparent thyroid enlargement or masses. CARDIOVASCULAR: Heart sounds are normal S1, S2, no S3 or S4. Regular rate and rhythm, no murmurs orrubs. RESPIRATORY: Clear to auscultation, no wheezes. Air entry is equal bilaterally. ABDOMEN: Generally normal to inspection, palpation, percussion, and auscultation. There is no apparent hepatosplenomegaly. MUSCULOSKELETAL: No digital clubbing, cyanosis or edema. Full range of motion at all joints. NEUROLOGICAL: Alert and oriented x3. Cranial nerves II-XII grossly normal. Normal symmetrical reflexes, tone, power, and sensation. VASCULAR: Peripheral pulses generally normal and symmetrical. No peripheral cyanosis or edema. SKIN: Normal with no acute lesions. PSYCH: Mental status appears normal. Impression / Report / Plan Trina was seen today for pre-op exam. Diagnoses and all orders for this visit: Diabetes Mellitus Type 2 (HCC) - Hemoglobin A1c; Future She controls diabetes through diet. She is due for A1c, ordered. Encouraged to continue with healthy diet and exercise. Preoperative Exam - Basic Metabolic Panel; Future - CBC with Differential, Blood; Future - Urinalysis with Microscopic if Indicated; Future - ECG 12 Lead; Future Trina Jaime is a 72 y.o. female considered a moderate risk patient undergoing a moderate riskprocedure. Her physical activity is currently above 4 mets and she currently declines any issues. she is currently medically optimized for the procedure. Patient appears capable of doing at least 4 METs of activity. There is no chest pain and no increasing shortness of breath with activity. There is no evidence of symptomatic obstructive sleep apnea. We will advise patient to take relevant medications with a sip of water the morning of procedure andotherwise be fasting from midnight the night before. Blood thinners including aspirin will be held o ne week prior, unless patient requires anticoagulation for hypercoaguability, or artificial heart valve, in which case patient will be bridged with low molecular weight heparin with 1/2 dose the day prior to procedure. Overall patient appears optimized for the procedure. (Krysten LA et al. ACC/AHA 2007 Guidelines on Perioperative Cardiovascular Evaluation and Care forNoncardiac Surgery: A Report of the [place] College of Cardiology /Danish Heart Association TaskForce on Practice Guidelines. Journal of the [place] College of Cardiology 2007; 50: [id number]) documented in this encounter Miscellaneous Notes * Addendum Note - Caren Vila M.D. - 08/31/2023 8:30 AM CDTAddended by: CAREN VILA on: 09/01/2023 11:47 AM Modules accepted: Orders * Addendum Note - Caren Vila M.D. - 08/31/2023 8:30 AM CDTAddended by: CAREN VILA on: 09/01/2023 04:16 PM Modules accepted: Orders * Addendum Note - Caren Vila M.D. - 08/31/2023 8:30 AM CDTAddended by: CAREN VILA on: 09/03/2023 11:11 AM Modules accepted: Orders documented in this encounter Plan of Treatment Upcoming Encounters Date Type Department Care Team (Late st Contact Info) Description 11/30/2023 8:20 AM CDT Appointment Department of Laboratory Medicine in [address] [phone] Caren Vila M.D. [address] [place] [phone] Scheduled Orders Name Type Priority Associated Diagnoses Orde r Schedule Hemoglobin A1c Lab Routine Diabetes Mellitus Type 2 (HCC) Expected: 09/01/2023, Expires: 12/01/2024 documented as of this encounter Results * (ABNORMAL) Hemoglobin A1c [...] 9:09 AM CDT 08/31/2023 1:40 PM CDT Caren Vila M.D. LAB BLOOD ADD-ON [facility] [address] [place] [address], [place] [facility] [place] [address] [place] [address] * (ABNORMAL) CBC with Differential, Blood (08/31/2023 [...] 9:09 AM CDT 08/31/2023 9:09 AM CDT Caren Vila M.D. LAB BLOOD ADD-ON [facility] [address] [place] [address], [facility] [address] [facility] [place] [address] [place] [address] * (ABNORMAL) Basic Metabolic Panel (08/31/2023 9:09 [...] 9:09 AM CDT 08/31/2023 1:40 PM CDT Caren Vila M.D. LAB BLOOD [facility] [address] [place] [address], [place] [facility] [place] [address] [place] [address] * (ABNORMAL) Urinalysis with Microscopic if Indicated [...] 8.0 08/31/2023 9:46 AM CDT FB60 Specific [place] 1.020 1.001 - 1.035 08/31/2023 9:46 AM CDT FB60 Urobilinogen 0.2 0.2 - 1.0 mg/dL 08/31/2023 9:46 AM CDT FB60 Urine (Urine, Midstream) 08/31/2023 9:07 AM CDT 08/31/2023 9:42 AM CDT Caren Vila M.D. LAB URINE ORDERABLES Performing Organization Address City/[facility] Co de Phone Number [facility] [address] [place] [address], [facility] [address] [facility] [place] [address] [place] [address] * ECG 12 Lead (08/31/2023 8:55 AM CDT) Ventricular Rate ECG/Min 53 BPM MUSE SC Interval 204 ms MUSE QRSD Interval 66 ms MUSE QT Interval 454 ms MUSE QTC Interval 426 ms MUSE P [place] 41 degrees MUSE R [place] 41 degrees MUSE T Wave [place] 52 degrees MUSE 08/31/2023 8:55 AM CDT 08/31/2023 9:59 AM CDT Impressions MUSE - 08/31/2023 9:03 AM CDT Sinus bradycardia with 1st degree A-V block Premature atrial complexes with aberrant conduction Nonspecific ST and T wave abnormality When compared with ECG of 07-May-2023 09:27, Premature atrial complexes with aberrant conduction are now present SC interval has increased Revised Report Narrative Procedure Note Misha Silva Jr., M.D. - 08/31/2023 IMPRESSION: Sinus bradycardia with 1st degree A-V block Premature atrial complexes with aberrant conduction Nonspecific ST and T wave abnormality When compared with ECG of 07-May-2023 09:27, Premature atrial complexes with aberrant conduction are now present SC interval has increased Revised Report Caren Vila M.D. ECG ORDERABLES MUSE NA documented in this encounter Visit Diagnoses Diagnosis Preoperative Exam- Primary Diabetes Mellitus Type 2 (HCC) Preoperative Exam documented in this encounter Additional Health Concerns Assessment Noted Time PHQ-9 Depression Total Score: 3 12/25/19 19 2:53 PM GIN CLERK documented as of this encounter Care Teams Centrifuge Separator Operator Relationship Specialty Start Date End Date Caren Vila M.D. [address] [facility] [place] [address] PCP - General 03/29/20 documented as of this encounter
--- OUTSIDE RECORDS SUMMARY | 2023-09-08 06:10 | XMS_ITS ---
Author Organization [facility] Address [address] [place] [address] Care Team Providers Care Data Center Project Manager Name Role Phone Unavailable Unavailable Unavailable Surgery Details Not on file Complications Check Surgery Details section. Procedure Estimated Blood Loss Check Surgery Details section. Procedure Findings Check Surgery Details section. Procedure Specimens Taken Check Surgery Details section.
--- OUTSIDE RECORDS SUMMARY | 2023-09-08 06:10 | XMS_ITS | Clinical Summary ---
Author Organization [facility] Address [place], [place] [address] Care Team Providers Care Board Mixer Tender Name Role Phone Pcp, No Primary Care Provider Unavailabl e Allergies No known active allergies Medications Medication Sig Dispensed Refills Start Date End Date Status acetaminophen (TYLENOL EXTRA STRGTH) 500 mg tablet Take 500 mg by mouth. Active aspirin (ECOTRIN) 81 mg enteric coated tablet Take 81 mg by mouth. Active atorvastatin (LIPITOR) 80 mg tablet Take 80 mg by mouth. 11/24/2019 Active bisoprolol (ZEBETA) 5 mg tablet Take 5 mg by mouth. 11/24/2019 Activ e hydroCHLOROthiazide 50 mg tablet Take 50 mg by mouth. Active nitroglycerin (NITROSTAT) 0.4 mg sublingual tablet Take one tablet every 5 minutes as needed for chest pain. If more than 3 doses is needed, go to ER. 11/24/2019 Active PARoxetine (PAXIL) 20 mg tablet Take 1 tablet by mouth. Active simvastatin (ZOCOR) 20 mg tablet Take 20 mg by mouth. Active triamcinolone (ARISTOCORT; KENALOG) 0.1 % cream Apply to affected area 2 times daily as needed. Avoid face and groin. 07/01/2018 Active Encounters Date Type Department Care Team Description 08/07/2023 Transcribe Orders [facility] [address] [address] Ar Moncada MD from Last 3 Months Social History Tobacco Use Types Packs/Day Years Used Date Smoking Tobacco: Never Smokeless Tobacco: Never Sex and Gender Information Value Date Recorded Sex Assigned at Not on file Gender Identity Not on file Sexual Orientation Not on file Obstetrics History Last Filed Vital Signs Vital Sign Reading Time Taken Comments Blood Pressure 131/62 12/11/2019 7:42 AM CDT Pulse 51 12/11/2019 7:42 AM CDT Temperature 36.9 ??C (98.4 ??F) 12/11/2019 4:00 AM CD T Respiratory Rate 20 12/11/2019 4:00 AM CDT Oxygen Saturation 96% 12/11/2019 7:42 AM CDT Inhaled Oxygen Concentration - - Weight 102.3 kg (225 lb 9.6 oz) 12/11/2019 4:00 AM CDT Height 152.4 cm (5') 12/11/2019 4:00 AM CDT Body Mass Index 44.06 12/11/2019 4:00 AM CDT Plan of Treatment Upcoming Encounters Date Type Department Care Team (Late st Contact Info) Description 09/22/2023 9:30 AM CDT Appointment [facility] [address] [place] [address] Pushpa Zarco, PT [address] [place] [address] Health Maintenance Due Date Last Done Comments Tdap 1960 Depression screening for age 12+ 1961 BMI (ht and wt on same day) for age 18+ 12/29/1967 Hepatitis C screening for age 18-79 12/29/1967 Tetanus booster 1969 Colonoscopy through age 75 1994 Lipids for age 45-75 1994 Mammogram for age 45-75 1994 Zoster (shingles) series for age 50+ (1 of 2) 12/29/1999 DEXA/DXA scan for age 65+ 2014 Pneumococcal series for age 65+ (1 of 1 - PCV) 2014 COVID-19 vaccine series (3 - 2022- season) 2022 07/25/2020, 06/27/2020 Influenza for age 65+ 10/18/2023 Care Teams Board Mixer Tender Relationship Specialty Start Date End Date Pcp, No . PCP - General 08/11/23
--- OUTSIDE RECORDS SUMMARY | 2023-09-08 06:10 | XMS_ITS | Clinical Summary ---
Author Organization [facility] Address [address] [place] [address] Care Team Providers Care Vocational Technical Education Director Name Role Phone Harleen Hartmann M.D. Primary Care Provider [phone] Source Comments Patient records contain information from all sites at [facility]. For routine questions regarding patient records, call [phone] during business hours, M-F 8:00 AM - 5:00 PM Central Time. Record requests for emergency care only can be directed to [phone] at any time.[facility] Allergies No known active allergies Medications Medication [...] Spouse: Ryland Children: 5, 10 grandkids Work: [employer] Surgical Problem Noted Date Diagnosed Date Hypertension Essential Primary 02/12/2021 Atherosclerotic Heart Diseas e Of [place] Coronary Artery Without Angina Pectoris 11/18/2017 Overview (11/18/2017): Coronary artery angiogram 11/16/17 Body Mass Index 40.0 To 44.9 Adult 02/14/2016 Overview (07/08/2016): Body mass index (BMI) 40.0-44.9, adult Rule activated problem due to BMI 40-44 posted on 02/13 at 10:03 SALON LEADER. Cancer Uterus Endometrial Personal History Overview (05/24/2017): Treated at the [facility] Depression Anxiety Hypercholesterolemia Diabetes Mellitus Type 2 Hyperglycemia Resolved Problems Problem Noted Date Diagnosed Date Resolved Date COVID-19 Infection 03/13/2021 2 Anticoagulant Therapy 01/19/20182017 Monitoring For Therapeutic Drug Therapy 01/19/2018 01/20/2018 Anticoagulant Therapy [Z79.01] 2017 01/14/2018 Monitoring For Therapeutic D rug Therapy [Z51.81] 2017 01/14/2018 Abnormal Stress Test 11/12/2017 018 Overview (11/12/2017): Added automatically from request for surgery [id number] Hypertensive Heart Disease W [facility] Heart Failure 11/12/2017 02/12/2021 Hypertension Essential Benign 06/08/2009 11/12/2017 Overview (07/08/2016): Benign Essential Hypertension Malignant Neoplasm Of Endometrium 06/04/2009 01/29/2022 Overview (07/08/2016): Cancer of endometrium KYLAH?BSO 11/24/2007 Hypertension Essential Primary 11/12/2017 Proctitis 11/26/2020 Encounters Date Type Department Care Team Description 09/03/2023 Clinical Communication Department of Family Medicine, [facility], [address] [address] Harleen Hartmann M.D. [facility] 08/31/2023 8:48 AM CDT - 08/31/2023 11:59 PM CDT Hospital Encounter Department of Laboratory Medicine in [address] [address] Harleen Hartmann M.D. Preoperative Exam; Diabetes Mellitus Type 2 (HCC) Discharge Disposition: Home or Self Care 08/31/2023 8:48 AM CDT - 08/31/2023 11:59 PM CDT Hospital Encounter Department of Laboratory Medicine in [address] [address] Harleen Hartmann M.D. Preoperative Exam Discharge Disposition: Home or Self Care 08/31/2023 8:47 AM CDT Hospital Encounter Department of Laboratory Medicine in [address] [address] Harleen Hartmann M.D. Preoperative Exam Discharge Disposition: Home or Self Care 08/31/2023 8:30 AM CDT Office Visit Department of Family Medicine, [facility], in [address] [address] Harleen Hartmann M.D. Preoperative Exam (Primary Dx); Diabetes Mellitus Type 2 (HCC) 07/31/2023 10:00 AM CDT Comprehensive Visit Department of Family Medicine, [facility], in [place], [place] [address] [place] [address] Kenia Chavarria APRN, C.NBriseydaPBriseyda Keratosis Seborrheic Inflamed (Primary Dx); Screening Examination Skin Cancer; Dermatoheliosis from Last 3 Months Immunizations Name Administration Dates Next Due DTaP (Infanrix, [employer]) 05/22/2009 PCV13 10/19/2015 Tdap 11/26/2020 Family History Medical History Relation Name Comments Coronary artery disease Brother 1 Ryland Diabetes Brother 2 Kermit Coronary artery disease Brother 3 Prashant CABG x 3 - Coronary artery bypass grafts x 3 Brother 4 Carmelo Coronary artery disease Brother 4 Carmelo Hyperlipidemia Brother 4 Carmelo No Known Problems Daughter 1 Kylah No Known Problems Daughter 2 Felicity Hepatocellular carcinoma Father Parmjit Radha er cancer Hyperlipidemia Father Parmjit Coronary artery disease Mother Radha Heart attack Mother Radha Hyperlipidemia Mother Radha No Known Problems Son 1 Edin No Known Problems Son 2 Don No Known Problems Son 3 Gulshan Relation Name Status Comments Brother 1 Ryland (Age 63) Brother 2 Kermit Alive Brother 3 Prashant Alive Brother 4 Carmelo Alive Daughter 1 Kylah Alive Daughter 2 Felicity Alive Father Parmjit (Age 63) Mother Radha (Age 71) Son 1 Edin Alive Son 2 Don Alive Son 3 Gulshan Alive Social History Tobacco Use Types Packs/Day Years Used Date Smoking Tobacco: Former Cigarettes Smokeless Tobacco: Never Tobacco Cessation:Counseling Given: Not Answered Alcohol Use Standard Drinks/Week Comments Not Currently 2 (1 standard drink = 0.6 oz pur e alcohol) Occasional [employer] Utilities Answer Date Recorded In the past 12 months has [employer], gas, oil, or water company threatened to [...] your living situation today? I have a [facility] place to live 05/07/2023 Sex and Gender [...] CDT Appointment Department of Laboratory Medicine in [place], [place] [address] [facility] [place] [phone] Harleen Hartmann M.D. [address] [facility] [place] [address] Health Maintenance Due Date Last Done Comments CT Colonography 1950 FIT 1950 Hepatitis C Screening 1950 Zoster Vaccines (1 of 2) 12/29/1999 Hepatitis B Vaccines (1 of 3 - Risk 3-dose series) 2009 Pneumococcal vaccine (65+ ye ars) (2 of 2 - PPSV23 or PCV20) 12/14/2015 10/19/2015 Colonoscopy 08/31/2022 08/31/2012 COVID-19 Vaccine (3 - 2022-2 4 season) 2022 07/25/2020, 06/27/2020 Dilated Eye Exam 08/26/2023 08/25/2022 (Per formed elsewhere), 08/22/2021 (Performed elsewhere), 02/22/2021 (Performed elsewhere), Additional history exists Influenza Vaccine (#1) 2023 Hemoglobin A1C 12/01/2023 08/31/2023, 02/06/2023, 12/17/2022, Additional history exists Urine Albumin 12/18/2023 12/17/2022, 11/16, 11/26/2020, Additional history exists Mammogram 02/25/2024 02/24/2023, 01/17, 01/31/2021, Additional history exists Diabetic Office Visit with F oot Exam 05/06/2024 05/07/2023, 02/24/2022, 11/26/2020 Visit: Medicare Annual Wellness 05/07/2024 Creatinine Level (Kidney Fun ction Test) 08/30/2024 08/31/2023, 12/17/2022, 11/27/2021, Additional history exists Office Visit for Blood Press ure Check / Re-check 08/30/2024 08/31/2023 Potassium Level 08/30/2024 08/31/2023, 11/0 02/2022, 11/27/2021, Additional history exists Sodium Level 08/30/2024 08/31/2023, 11/0 02/2022, 11/27/2021, Additional history exists Visit: Chronic Disease, age 18+ 08/30/2024 , 05/07/2023 Cologuard 01/22/2026 01/22/2023 Colorectal Cancer Screening 01/22/2026 Lipid (Cholesterol) Screening 05/06/2028, 11/27/2021, 11/26/2020, Additional history exists DTaP,Tdap,and Td Vaccines (3 - Td or Tdap) 11/26/2030 11/26/2020, 05/22/2009 Depression Screening (Annual PHQ-2) Completed 05/07/2023, 05/07/2023 Fall Risk Screen (Annual) Completed 05/07/2023 Medical Devices Implanted Type Area Supervisor Incising Device Identifier Shelf Expiration Date Model / [...] inpatients and all outpatients) 02/24/2023 11:16 AM SALON LEADER Screening Mammogram Breast Cancer COLOGUARD Routine 01/22/2023 12:19 PM SALON LEADER Screening Cancer Colon ALBUMIN, RANDOM, U Routine [...] Susceptible Harleen Hartmann M.D. LAB MICROBIOLOGY - [facility] ORDERABLES [place] [id number] [place] [address], [facility] [place] [address] * (ABNORMAL) CBC with Differential, Blood (08/31/2023 9:09 AM CDT) [facility] Hemoglobin 15.1(H) 11.6 - 15.0 g/dL 08/31/2023 [...] CDT Harleen Hartmann M.D. LAB BLOOD ADD-ON Performing Organization Address City/[facility] Co de Phone Number [facility] [address] [place] [address], [facility] FB60 [facility] in [place] [address] [place] [address] * (ABNORMAL) Hemoglobin A1c (08/31/2023 9:09 AM CDT) [facility] Signature Hemoglobin A1c, B 8.0(H) 4.2 - 5.6 [...] CDT Harleen Hartmann M.D. LAB BLOOD ADD-ON [facility] [address] [place] [address], [facility] in [place] [address] [place] [address] * (ABNORMAL) Basic Metabolic Panel (08/31/2023 9:09 [...] CDT Harleen Hartmann M.D. LAB BLOOD ADD-ON [facility] [address] [place] [address], [facility] [facility] in [place] [address] [place] [address] * (ABNORMAL) Urinalysis with Microscopic if Indicated [...] 8.0 08/31/2023 9:46 AM CDT FB60 Specific [place] 1.020 1.001 - 1.035 08/31/2023 9:46 AM CDT FB60 Urobilinogen 0.2 0.2 - 1.0 mg/dL 08/31/2023 9:46 AM CDT FB60 Urine (Urine, Midstream) 08/31/2023 9:07 AM CDT 08/31/2023 9:42 AM CDT Harleen Hartmann M.D. LAB URINE ORDERABLES [facility] [address] [place] [address], [facility] FB60 [facility] in [place] [address] [place] [address] * Microscopic Manual (08/31/2023 9:07 AM CDT) [...] M.D. LAB URINE ORDERABLES Performing Organization Address [facility] de Phone Number [facility] [address] [place] [address], [facility] [address]60 [facility] in [place] [address] [place] [address] * ECG 12 Lead (08/31/2023 8:55 AM CDT) Ventricular Rate ECG/Min 53 BPM MUSE UT Interval 204 ms MUSE QRSD Interval 66 ms MUSE QT Interval 454 ms MUSE QTC Interval 426 ms MUSE P [place] 41 degrees MUSE R [place] 41 degrees MUSE T Wave [place] 52 degrees MUSE 08/31/2023 8:55 AM CDT [...] CDT Harleen Hartmann M.D. LAB BLOOD ADD-ON [facility] [address] [place] [address], [place] [facility] in [place] [address] [place] [address] * BI Breast Screening Bilateral with Tomosynthesis (02/24/2023 11:16 AM SALON LEADER) Anatomical Region Laterality Modality Breast, Breast Imaging RST L OS, Breast Imaging ARZ LOS, Breast Imaging FLA LOS Bilateral Mammography Impressions 02/24/2023 1:49 PM SALON LEADER Negative. RECOMMENDATION: ??Annual Screening Mammogram ASSESSMENT: ??BI-RADS: 1: Negative. Narrative 02/24/2023 1:49 PM SALON LEADER EXAM: ??BI BREAST SCREENING BILATERAL WITH TOMOSYNTHESIS [...] ASSESSMENT: BI-RADS: 1: Negative. Harleen Hartmann M.D. [facility] BI PROCEDURES * Cologuard - Sent Out Lab (01/22/2023 12:19 PM SALON LEADER) Result Negative Negative 01/30/2023 9:48 AM SALON LEADER EXLI Comment: NEGATIVE TEST RESULT. A negative [...] (Aida Huizar al, N Engl J Med 2014;370(14):7462-9229) The normal value (reference range) for this assay is negative. COLOGUARD RE-SCREENING RECOMMENDATION: Periodic colorectal cancer screening is an important part of preventive healthcare for asymptomatic individuals at average risk for colorectal cancer. ??Following a negative Cologuard result, the [place] Cancer Society and U.S. Multi-Society Task Force screening guidelines recommend a Cologuard re-screening interval of 3 years. References: [place] [employer] Society Guideline for Colorectal Cancer Screening: https://www.cancer.org/cancer/shaht-wfwcad-mdpphd/detection- diagnosis-staging/acs-recommendations.html.; Charles DK, Elizabeth WILLIS, Mayda ValenciaK, Colorectal Cancer Screening: Recommendations for Physicians and Patients from the U.S. Multi-Society Task Force on Colorectal Cancer Screening , Am J Gastroenterology 2017; 112:6249-2658. TEST DESCRIPTION: Composite algorithmic analysis of stool [...] (Aida Huizar al, N Engl J Med 2014;370(14):9537-5847.) Cologuard may produce a false negative or false positive result (no colorectal cancer or precancerous polyp present at colonoscopy follow up). A negative Cologuard test result does not guarantee the absence of CRC or advanced adenoma (pre-cancer). The current Cologuard screening interval is every 3 years. ([place] Cancer Society and U.S. Multi-Society Task Force). Cologuard performance data in a 10,000 patient pivotal study using colonoscopy as the reference method can be accessed at the following location: www.[employer].ImmunotEGG/results. Additional description of the Cologuard test process, warnings and precautions can be found at www.cologuard.com. Stool (Stool) 01/22/2023 12: 19 PM SALON LEADER 01/24/2023 2:47 PM SALON LEADER Harleen Hartmann M.D. LAB BODY FLUIDS AND STOOLS ORDERABLES [address] [place] [address] EXLI [place] [address] [place] [address], [address] [place] [address] * Albumin, Random, Urine (12/17/2022 8:40 AM [...] CDT Harleen Hartmann M.D. LAB URINE ORDERABLES [facility] [address] [place] [address], [place] [facility] in [place] [address] [place] [address] from Last 3 Months or Most Recently Relevant to Health Maintenance Care Teams Vocational Technical Education Director Relationship Specialty Start Date End Date Harleen Hartmann M.D. [address] [place] [phone] PCP - General 03/29/20
--- OUTSIDE RECORDS SUMMARY | 2023-09-08 06:10 | XMS_ITS | Encounter Summary ---
Author Organization [facility] Address [address] [place] [address] Care Team Providers Care Lead Ramp Agent Name Role Phone Harleen Hartmann M.D. Primary Care Provider Reason for Visit * Reason Comments Skin Check * Outpatient (Routine) - Closed Specialty Diagnoses / Procedures Referred By Tracie batista Referred To Contact Family Medicine Diagnoses Screening Examination Skin Cancer Harleen Hartmann M.D. [address] [place] [phone] [facility] Region Referral ID Status Reason Start Date Expiration Date Visits Re quested Visits Authorized [id number] Closed 05/07/2023 11/05/2024 1 1 Encounter Details Date Type Department Care Team (Latest Contact Info) Description 07/31/2023 10:00 AM CDT Comprehensive Visit Department of Family Medicine, [facility], in [place], [place] [address] [place] [address] Kenia Chavarria APRN, C.N.P. [address] [place] [address] Keratosis Seborrheic Inflamed (Primary Dx); Screening Examination Skin Cancer; Dermatoheliosis Social History Tobacco Use Types Packs/Day Years Used Date Smoking Tobacco: Former Cigarettes Smokeless Tobacco: Never Tobacco Cessation:Counseling Given: Not Answered Alcohol Use Standard Drinks/Week Comments Not Currently 2 (1 standard drink = 0.6 oz pur e alcohol) Occasional [facility] Utilities Answer Date Recorded In the [...] your living situation today? I have a [facility] place to live 05/07/2023 Sex and Gender Information Value Date Recorded Sex Assigned at Female 05/07/2023 8:34 AM CDT Gender Identity Female 05/07/2023 8:34 AM CDT Sexual Orientation Straight 05/07/2023 8: 34 AM CDT documented as of this encounter H&P Notes * Kenia Chavarria, NITHIN, C.N.P. - 07/31/2023 10:00 AM CDT SUBJECTIVE CHIEF COMPLAINT/REASON FOR VISIT Skin cancer screening examination. HISTORY OF PRESENT ILLNESS NOTE: Patient was made aware that I am trained as a Family Medicine Specialist and have a special interest in Dermatology; however, I am not a Electronic Components Assembler. Anything beyond the scope of my abilitiesor comfort level will be referred to a Electronic Components Assembler of their choosing. Trina is a very pleasant 72 y.o. female who presents for a full skin examination. She denies any personal history of skin cancer. She has several irritated spots on her neck and chest that she would like evaluated. Per Nursing Notes: Reason for visit: FSE More details of current skin concern: Spots on neck and chest Any other skin concerns: No Has the patient previously been a dermatology patient? No Is patient referred by another provider or self referred? Dr Vazquez referred Personal history of skin cancer? (include details) No Significant history of sun exposure? Yes - Two or more blistering sunburns before age 15? Yes - History of tanning bed use? Yes - Personal history of other skin problems? No Family history of skin cancer? No Family history of other significant skin problems? No REVIEW OF SYSTEMS Constitutional, integumentary, and allergic/immunologic Review of Systems is otherwise negative except as otherwise remarked above or below. CURRENT MEDICATIONS Current Outpatient Medications Medication Sig Dispense Refill [...] No current facility-administered medications for this visit. ALLERGIES/CONTRAINDICATIONS No Known Allergies OBJECTIVE PHYSICAL EXAMINATION General: Alert and orientated to person, place, and time. Well-nourished and groomed, in no acute distress. Skin: A full skin examination was performed of the scalp, head, neck, face, hair, chest, abdomen, back, undergarments area, and 4 extremities including palms, soles, digits, and nails. Skin inspectedand palpated where appropriate. Eyes and lips, including vermilion lips, also examined. There are multiple seborrheic keratoses of the chest, abdomen, back, and extremities of benign appearance with moderately sun-damaged skin. On the neck, upper chest, and back there are multiple stuck on appearing slightly inflamed papules consistent with seborrheic keratoses. ASSESSMENT / PLAN #1 Screening Examination Skin Cancer A skin cancer screening was performed of the areas described above. The patient has a history of sun damaged skin. Therefore, recommended routine skin self- examinations with the aid of another trusted individual for assistance to evaluate for new, changing, symptomatic or otherwise worrisome lesions of the skin as these can be signs of skin cancer. ABCDEs of melanoma discussed. Photoprotection was advised and strategies identified. Otherwise, return to Dermatology in 24-36 months for a full head-to-toe skin cancer screening. #2 Keratosis Seborrheic Inflamed The benign nature of this lesion(s) was discussed with the patient. Given the inflamed nature of this lesion(s), its treatment is medically indicated. We treated a total of 14 lesion(s) with one 20-second freeze-thaw cycle of liquid nitrogen cryotherapy. The patient tolerated the procedure well. Aftercare instructions were provided in written and verbal form to the patient. Should any of these lesions recur, the patient should return for further evaluation. #3 Dermatoheliosis Sun protection and sun avoidance were reviewed with the patient. Educational materials were provided regarding skin self-examination, the warning signs and symptoms of skin cancer, and the proper useof sunscreen SPF 30 or higher. I would recommend a full skin cancer screening examination with an appropriately trained clinician every other year. PATIENT EDUCATION: Ready to learn, no apparent learning barriers were identified; learning preferences include listening. Explained diagnosis and treatment plan; patient expressed understanding of the content. This note represents shared documentation between the assisting nurse and the encounter provider. The content has been reviewed and edited as needed by the provider. documented in this encounter Plan of Treatment Upcoming Encounters Date Type Department Care Team (Late st Contact Info) Description 11/30/2023 8:20 AM CDT Appointment Department of Laboratory Medicine in [place], [place] [address] [place] [address] Harleen Hartmann M.D. [address] [place] [address] documented as of this encounter Visit Diagnoses Diagnosis Keratosis Seborrheic Inflamed- Primary Screening Examination Skin Cancer Dermatoheliosis documented in this encounter Additional Health Concerns Assessment Noted Time PHQ-9 Depression Total Score: 3 12/25/19 19 2:53 PM MUSIC INDUSTRY INTERN documented as of this encounter Care Teams Lead Ramp Agent Relationship Specialty Start Date End Date Harleen Hartmann M.D. [address] [place] [address] PCP - General 03/29/20 documented as of this encounter
--- OUTSIDE RECORDS SUMMARY | 2023-09-08 06:10 | XMS_ITS | Encounter Summary ---
Author Organization [facility] Address [address] [place] [address] Care Team Providers Care Residential Fee Appraiser Name Role Phone Harleen Hartmann M.D. Primary Care Provider [phone] Encounter Details Date Type Department Care Team (Latest Contact Info) Description 08/31/2023 8:48 AM CDT - 08/31/2023 11:59 PM CDT Hospital Encounter Department of Laboratory Medicine in [place], [place] [address] [place] [phone] Harleen Hartmann M.D. [address] [place] [phone] Preoperative Exam Discharge Disposition: Home or Self Care Social History Tobacco Use Types Packs/Day Years Used Date Smoking Tobacco: Former Cigarettes Smokeless Tobacco: Never Alcohol Use Standard Drinks/Week Comments Not Currently 2 (1 standard drink = 0.6 oz pur e alcohol) Occasional [facility] Utilities Answer Date Recorded In the past 12 months has [employer], gas, oil, or water [employer] threatened to shut off services in your [...] your living situation today? I have a [facility] place to live 05/07/2023 Sex and [...] CDT Appointment Department of Laboratory Medicine in [place], [place] [address] [place] [address] Harleen Hartmann M.D. [address] [place] [address] documented as of this encounter Procedures Procedure Name Priority Date/Time Associated Diagnosis Comments BACTERIAL CULTURE, AEROBIC + SUSC, URINE Routine 09/01/2023 9:07 AM CDT Preoperative Exam URINALYSIS WITH MICROSCOPIC IF INDICATED, U Routine 08/31/2023 9:07 AM CDT Preoperative Exam NV URINALYSIS AUTO W MICRO Routine 08/31/2023 9:07 AM CDT documented in this encounter Results * (ABNORMAL) Bacterial Culture, Aerobic + Susceptibility, Urine (09/01/2023 9:07 AM CDT) Urine Culture With urogenital microbiota, susceptibilities not performed per laboratory criteria. (A) 09/03/2023 12:52 PM CDT [facility] Urine Culture ESCHERICHIA COLI 10,000-100,000 cfu/mL (A) 09/03/2023 12:52 PM CDT [facility] Urine (Urine, Midstream) 09/01/2023 9:07 AM CDT [...] M.D. LAB MICROBIOLOGY - G [facility]AL ORDERABLES [facility] [address] [place] [address], [facility] in [place] [address] [place] [address] * Microscopic Manual (08/31/2023 9:07 AM CDT) [...] M.D. LAB URINE ORDERABLES Performing Organization Address City/State/[facility] Co de Phone Number [facility] [address] [place] [address], [facility] FB60 [facility] in [place] [address] [place] [address] * (ABNORMAL) Urinalysis with Microscopic if Indicated [...] 8.0 08/31/2023 9:46 AM CDT FB60 Specific [place] 1.020 1.001 - 1.035 08/31/2023 9:46 AM CDT FB60 Urobilinogen 0.2 0.2 - 1.0 mg/dL 08/31/2023 9:46 AM CDT FB60 Urine (Urine, Midstream) 08/31/2023 9:07 AM CDT 08/31/2023 9:42 AM CDT Harleen Hartmann M.D. LAB URINE ORDERABLES Performing Organization Address City/State/[facility] Co de Phone Number [facility] [address] [place] [address], [facility] [address]60 [facility] [place] [address] [place] [address] documented in this encounter Visit Diagnoses Diagnosis Preoperative Exam documented in this encounter Additional Health Concerns Assessment Noted Time PHQ-9 Depression Total Score: 3 12/25/19 19 2:53 PM ELECTRO MECHANICAL SOLAR TECHNICIAN documented as of this encounter Care Teams Residential Fee Appraiser Relationship Specialty Start Date End Date Harleen Hartmann M.D. [address] [place] [phone] PCP - General 03/29/20 documented as of this encounter
[2023-09-08] MEDS: SODIUM CHLORIDE 0.9 % (FLUSH) 10 ML SYRINGE IVF (06:35)
[2023-09-08] MEDS: LACTATED RINGERS 1000 ML 1,000 ML 100 ML IV ×2 (06:35→08:59)
[2023-09-08] MEDS: ACETAMINOPHEN 500 MG TABLET 1000 MG PO (06:36)
[2023-09-08] MEDS: CELECOXIB 200 MG CAPSULE PO (06:36)
[2023-09-08] MEDS: OXYCODONE (CR) 10 MG TAB.ER.12H PO (06:36)
[2023-09-08] MEDS: fentaNYL 100 MCG/2 ML inj IVP (06:58)
[2023-09-08] MEDS: MIDAZOLAM HCL 1 MG/ML inj IVP (06:58)
--- NOTE | 2023-09-08 07:05 | SUR.PREOP ---
TIME?OUT:?0657 PT/RN/MDA?VERIFICATION?OF?SURGICAL?SITE,?PROCEDURE,?AND?CONSENT OBTAINED?PRIOR?TO?INVASIVE?PROCEDURE. all in agreement
[2023-09-08] MEDS: CEFAZOLIN 2 GM INJ IVPB (08:02)
[2023-09-08] MEDS: TRANEXAMIC ACID 100 MG/ML INJ 1000 MG IV (08:02)
--- NOTE | 2023-09-08 08:07 | P.NB_ITS ---
Nerve Block Nerve Block Time Seen by Provider: 07:00 Date Seen: 09/08/23 Type of block requested by surgeon for post-operative analgesia: supraclavicular Side: right Time out performed: Yes Verification of patient name: Yes Verification of date of : Yes Site marking: site marked Name of person performing procedure: Sb Continuous monitoring Was continuous monitoring of O2 sat, B/P, commercial escrow officer, recorded every 15 minutes?: Yes Procedure Checklist: sterile prep, needles and gloves Ultrasound guided. Images saved: Yes Medications given in 5ml increments after negative aspiration: Ropivicaine %: 0.5 mL: 20 Needle gauge: 22 Decadron (mg): 10 Precedex (mcg): 25 Patient tolerated procedure well: Yes Block Charges Block Charge (with Pro Fee): Brachial Plexus Use of Ultrasound Machine for Block: Yes- US Guidance/pain block
--- NOTE | 2023-09-08 08:07 | W.ANESCHARGE ---
Anesthesia Charges Start Date/Time Anesthesia Start Date: 09/08/23 Anesthesia Start Time: 07:31 Stop Date/Time Anesthesia Stop Date: 09/08/23 Anesthesia Stop Time: 10:10 Summary Extremes of Age - Over 70 or under 1: MDA
--- NOTE | 2023-09-08 09:21 | CRLHL7_ITS ---
For Patients: As a result of the Cures Act, medical imaging exams and procedure reports are released immediately into your electronic medical record. You may view this report before your referring provider. If you have questions, please contact your health care provider. Indication: Postop Technique: Two views right shoulder Findings/Impression: Hardware from a reverse total shoulder arthroplasty is in satisfactory position. Bone alignment is normal. No sign of acute fracture. Postop changes are within normal limits. Dictated by Ryland Brooks MD @ 09/08/2023 10:34:19 AM (Electronically Signed)
--- NOTE | 2023-09-08 09:24 | P.ORPRC_ITS ---
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 Tornier 29 mm x 35 mm baseplate 2. 36mm standard glenosphere 3. 5B humeral stem 4. High eccentric +0 humeral tray 5. 36mm +6 polyethylene INDICATIONS: The patient is a 72-year-old with a longstanding history of severe, unrelenting right shoulder pain secondary to end-stage glenohumeral join t osteoarthritis . Despite appropriate nonoperative management, including activity modification, anti-inflammatories, [id number] pain medication, physical therapy, and injections they continue to have pain and disability. Operative intervention was offered. The risks, benefits and expected outcomes were discussed in detail. These included but were not limited to: Infection, bleeding, injury to blood vessel or nerve, venous thromboembolism. All questions were answered to their satisfaction. Use of an agency sales management assistant was necessary throughout the case for patient positioning and safety, soft tissue retraction, and closure. PROCEDURE: General anesthesia was administered. The patient was placed in the lazy beach chair position on the operating room table. The right upper extremity was prepped and draped in the usual sterile fashion. A standard deltopectoral incision was made. Subcutaneous dissection was taken with electrocautery to the deltopectoral interval. The cephalic vein was mobilized, lateral branches were cauterized. The vein was taken medially with the pectoralis. It was then cauterized. We bluntly entered the deltopectoral interval. We freed up the deltoid. The upper 1/3 of the insertion of the pectoralis was divided with cautery. The static retractor was placed. The clavipectoral fascia and CA ligament were divided. The circumflex vessels were controlled with electrocautery. The biceps was dissected out of the bicipital groove, was tagged with a #2 FiberWire suture and divided proximally. Two fiberWire sutures were placed in the subscapularis. The subscap was subperiosteally elevated off of the lesser tuberosity. The humeral head was delivered into the wound. The intramedullary humeral cutting guide was placed. We made the cut at the anatomic neck, in 30? of retroversion. Humeral sounds were used to assess the diameter of the canal. The broach was placed and had good rotational stability. The calcar reamer was used and the protective base plate cover was placed. Attention was then turned to the glenoid. Hohmann retractors were placed posteriorly. The labrum and biceps stump were sharply debrided. The origin of the inferior glenohumeral ligaments were subperiosteally released off of the glenoid. The drill guide was placed. The guide pin was placed in 0? of cephalic tilt. The reamer was used to bleeding bone. The central drill was used x2. The tap was used. The standard base plate was placed. This had excellent purchase. Locking screws x2 were placed. The glenosphere was placed, the set screw was tightened. Attention then returned to the humerus. We placed a high eccentric standard base plate and standard poly. We reduced the shoulder and took it through a range of motion. It was found to be stable with appropriate soft tissue tension. Trial humeral components were removed. The biceps was tenodesed in the bicipital groove with drill holes and our previously placed FiberWire suture. We placed #2 FiberWire sutures in the lesser tuberosity for subsequent subscap repair. We assembled the humeral component on the back table. We placed it in the center of our subscapularis repair sutures and tapped it down to our humeral cut. This had excellent purchase. The shoulder was reduced and again was found to be stable with appropriate soft tissue tension. The rotator interval was repaired with a # 2 FiberWire suture. We repaired the subscapularis to the lesser tuberosity with our previously placed FiberWire sutures. We did a 3 min dilute Betadine solution soak. We irrigated the wound with 3 L of normal saline via pulse lavage. The deltopectoral interval was loosely reapproximated with an 0 Vicryl in an interrupted [id number] fashion. Subcutaneous tissues were closed with the 2-0 Vicryl and a running 3-0 Monocryl suture. The skin was sealed with glue. A dry dressing and sling were applied. Sponge and needle counts were correct x2. The patient tolerated the procedure well, there were no apparent complications. They were awakened and extubated in the operating room, taken to the postanesthesia care unit in satisfactory condition. PLAN: The patient will be mobilized with physical therapy. The sling will be used for 6 weeks postoperatively. Active range of motion in forward flexion and abduction as tolerates. No external rotation greater than 0? for 6 weeks postoperatively. They will be discharged to home once medically appropriate.
--- NOTE | 2023-09-08 10:13 | W.ANESCHARGE ---
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
[2023-09-08] MEDS: LACTATED RINGERS 1000 ML 1,000 ML 35 ML IV (12:25)
== END 2023-09-08 14:15 | disposition home or self-care (01) ==
LOC: OR 06:07
PROVIDERS: PCP Family Medicine; Visit Provider Orthopaedic Surgery
PROC: 0RRJ0JZ Replacement of Right Shoulder Joint with Synthetic Substitute, Open Approach (ICD-10-PCS; CPT 23472; principal; 2023-09-08 07:15)
DX: M19.011 Primary osteoarthritis, right shoulder (principal); G89.18 Other acute postprocedural pain; E11.9 Type 2 diabetes mellitus without complications
CPT/HCPCS: 23472; 23430; 01638; 64415; 73030; 76942; 82962; 97110; 97165; 97535; 99100; A9270; C1713; C1776; J0690; J1100; J2250; J2371; J2405; J2704; J2710; J3010; J7120